=== PATIENT | male | born 1990 | race African-American/Black ===

== ENCOUNTER 2021-02-27 08:20 | Emergency (ER) | payer MEDICAID ==
[~2021-02-27] VITALS: Ht 175.3 cm; Wt 114.0 kg
[2021-02-27] MEDS ORDERED: TETANUS, DIPHTHERIA, PERTUSSIS VAC/PF 0.5ML (>7YR OLD) IM ONE (08:45)
[2021-02-27 10:16] LABS: CHLORIDE 104 mEq/L (98-107)
[2021-02-27 12:29] VITALS: BP 139/89
[2021-02-27] MEDS ORDERED: IOHEXOL-300 100 ML BOTTLE ONE (12:54)
== END 2021-02-27 12:32 | disposition home or self-care (01) ==
LOC: ER 08:20
DX: S06.9X9A Unspecified intracranial injury with loss of consciousness of unspecified duration, initial encounter (principal); S00.531A Contusion of lip, initial encounter; V43.52XA Car driver injured in collision with other type car in traffic accident, initial encounter; W22.11XA Striking against or struck by driver side automobile airbag, initial encounter; Y93.89 Activity, other specified; Y92.488 Other paved roadways as the place of occurrence of the external cause; Y99.8 Other external cause status
CPT/HCPCS: 36415; 70450; 71045; 74177; 80048; 90471; 90715; 93005; 99285; Q9967; Z7610